=== PATIENT | female | born 1970 | race Two or more races ===

== ENCOUNTER → 2019-08-28 | Outpatient (CLI) | payer BC | LOC: MAMMO 10:35 | PROVIDERS: ATTEND Internal Medicine | DX: Z12.31 Encounter for screening mammogram for malignant neoplasm of breast (principal) | CPT/HCPCS: 77067 ==

== ENCOUNTER → 2019-09-21 | Outpatient (CLI) | payer BC | LOC: MAMMO 09:17 | PROVIDERS: ATTEND Internal Medicine | DX: N64.89 Other specified disorders of breast (principal) | CPT/HCPCS: 77066 ==